=== PATIENT | female | born 1990 | race Caucasian/White ===

== ENCOUNTER 2021-11-04 17:53 | Emergency (ER) | payer OTHER, SELFPAY ==
[2021-11-04 18:02] VITALS: BP 104/54; PULSE 68; RESP 18; TEMP 35.7; O2SAT 98; BMI 22.3
--- NOTE | 2021-11-04 18:23 | ED_ITS ---
HPI - General Adult General Time Seen by Provider: 18:23 Date Seen: 11/04/21 Chief complaint: Chest Pain Stated complaint: Covid+ Chest Pain Time Seen by Provider: 11/04/21 17:56 Source: patient and RN notes reviewed Mode of arrival: EMS Limitations: no limitations History of Present Illness HPI narrative: Patient is a 31-year-old female with complex medical history coming in with complaint of right upper quadrant pain radiating into the chest with underlying COVID. She states she tested positive for COVID. She states she started to become ill on Tuesday but she also said that she stopped her Xarelto through the weekend so that she could be able to take ibuprofen as she felt ibuprofen worked better for her symptoms. She states she has been diagnosed with a portal vein thrombosis in 2016, had a bypass surgery done for this at [place]. She has been on Xarelto for this. 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 She has been having significant body aches. Did have 2 days of fevers of 101.8, did not get it below 100. She has had maybe minimal cough. She started having right upper quadrant abdominal pain reminiscent of symptoms that were similar with her portal vein thrombosis. Pain does radiate into her chest. No shortness of breath. Sore throat started today. She does have IV contrast allergy and states that she does get steroids and Benadryl when she needs contrast done. She really has not been able to eat or drink, minimal oral intake per report. Did get 50 mg IV Benadryl, 75 mcg IV fentanyl and 4 mg IV Zofran with EMS. She states she did not test positive for COVID until today. She states she has been in contact with her physician at [facility] [place] wound did send her in a medicine for COVID. She knows it was not the Paxlovid due to her Xarelto. She believes it may have been molpurinavir which she has not started. She reported to nursing staff that she had been using CBD gummies to aid in sleep. Related Data Home Medications Medication Instructions Recorded Confirmed bupropion HCl 150 mg 24 hr tablet, mg PO 11/04/21 extended release dextroamphetamine-amphetamine ER PO 11/04/21 30 mg 24hr capsule,extend release duloxetine 30 mg capsule,delayed mg PO 11/04/21 release fluticasone propionate 50 intranasal 11/04/21 mcg/actuation nasal spray,suspension rivaroxaban 20 mg tablet (Xarelto) mg 11/04/21 Allergies Allergy/AdvReac Type Severity Reaction Status Date / Time Iodinated Contrast Media Allergy Verified 11/04/21 20:12 zolpidem [From Ambien] Allergy Verified 11/04/21 20:12 propanolol Allergy Uncoded 11/04/21 20:12 Review of Systems Status of ROS: Reports: 10 or more systems reviewed and unremarkable except as noted in History and below [facility] Medical History (Updated 11/04/21 @ 21:21 by Christianne Lara MD) Abdominal hernia Abdominal pain ADHD Aneurysm Anxiety Asthma Campylobacter enteritis Colitis DVT (deep venous thrombosis) Mariaelena-Danlos disease Gastritis long-term current use of anticoagulant Low back pain Migraine Pain management contract agreement Pancreatitis Portal hypertension PVT (portal vein thrombosis) Thyroid nodule Surgical History (Updated 11/04/21 @ 19:34 by Roberto Swain RN) Delivery by section H/O wisdom tooth extraction History of knee surgery Hx of tonsillectomy Social History Smoking Status: Unknown if ever smoked Do you use any of these nicotine containing products: None How often do you have a drink containing alcohol: never AUDIT-C Alcohol total score: 0 Non-prescribed substance use: marijuana (any form) Exam Const: Vital Signs, click to edit/add: Vital Signs - 24 hr 11/04/21 18:02 11/04/21 19:13 11/04/21 19:30 Temperature 96.3 F L Pulse Rate [Right Pulse Oximeter] 68 74 Respiratory Rate 18 16 Blood Pressure [Ri ght Upper Arm] 104/54 L 122/73 Pulse Oximetry 98 98 99 Oxygen Delivery Me thod Room Air Room Air Documenting provider has reviewed patient's vital signs: yes Common normals: no apparent distress, average body habitus, oriented x3, no limitations and alert General appearance: cooperative (Sleepy likely from medications from EMS but certainly arousable), comfortable and ill appearing Other: Is able to fully converse with me despite having IV fentanyl on board. Does keep her eyes shut when talking to me however but speech is distinct and appropriate. HENMT: Common normals: normocephalic, head/scalp atraumatic, hearing grossly normal bilaterally, external ears normal, external nose normal, nasal mucous membranes and turbinates normal, oropharynx normal, dentition normal and gingiva normal Head and scalp: normocephalic and atraumatic Nose: external nose normal and nasal mucous membranes and turbinates normal External ear: external ears normal Other: Oral mucosa and tongue with dry membranes but posterior pharynx normal. Eye: Common normals: PERRL, EOMs intact bilaterally, conjunctivae normal and no scleral icterus Conjunctiva: conjunctiva(e) normal Pupil: PERRL Neck & C-Spine: Common normals: full ROM, no lymphadenopathy, supple, no meningeal signs, no JVD and thyroid normal Thyroid: thyroid normal Resp: Common normals: normal respiratory effort, no retractions, no use of accessory muscles and clear to auscultation bilaterally Auscultation: clear to auscultation bilaterally Cardio: Common normals: no JVD, regular rate, regular rhythm, S1 normal heart sound, S2 normal heart sound, no gallops, no clicks, no murmurs and no rub Rate: regular rate Rhythm: regular rhythm Heart sounds: S1 normal and S2 normal GI: Common normals: Normal to inspection, nondistended, normoactive bowel sounds present (Old well-healed midline scar), soft to palpation, non-tender, no hepatosplenomegaly, no masses and no bruits Palpation: soft and no hepatosplenomegaly Extremity: Common normals: normal to inspection, full ROM, normal capillary refill, no joint enlargement, no clubbing, cyanosis or edema, no calf tenderness and no pedal edema Neuro: Common normals: oriented x3 Sensorium/orientation: alert Meningeal signs: no meningeal signs Skin: Common normals: no rashes or lesions noted, no wounds, no jaundice and no petechiae General skin exam: no rashes or lesions noted Course Course Hospital Course: Will initiate a L of IV fluids as she certainly does seem dry clinically. Will premedicate with 200 mg IV hydrocortisone and patient already received IV Benadryl, consider re-dosing with 25 mg if it is going to be a while before the CT. We will obtain an EKG, have her on cardiac monitoring and pulse oximetry. Given her report of COVID in her history of thromboembolic disease and current status being off Xarelto, will get chest PE protocol and obtain abdomen pelvis with IV contrast. May need to contact [place] for further assistance on her history with records. At this time she is hemodynamically stable. Falls asleep when I am not interacting with her, thus presumably her pain is well controlled. Vital Signs Vital signs: Initial Vital Signs Temperature 96.3 F L 11/04/21 18:02 Temperature Source Temporal Artery Scan 11/04/21 18:02 Pulse Rate 68 11/04/21 18:02 Pulse Rhythm 11/04/21 18:02 Respiratory Rate 18 11/04/21 18:02 Blood Pressure 104/54 L 11/04/21 18:02 Blood Pressure Mean 70 11/04/21 18:02 Blood Pressure Position Supine 11/04/21 18:02 Pulse Oximetry 98 11/04/21 18:02 Oxygen Delivery Method 11/04/21 18:02 Vital Signs Temperature 96.3 F L 11/04/21 18:02 Pulse Rate 68 11/04/21 18:02 Respiratory Rate 18 11/04/21 18:02 Blood Pressure 104/54 L 11/04/21 18:02 Pulse Oximetry 98 11/04/21 18:02 Oxygen Delivery Method 11/04/21 18:02 Temperature 96.3 F L 11/04/21 18:02 Pulse Rate 74 11/04/21 19:30 Respiratory Rate 16 11/04/21 19:30 Blood Pressure 122/73 11/04/21 19:30 Pulse Oximetry 99 11/04/21 19:30 Oxygen Delivery Method 11/04/21 19:30 Medical Decision Making Lab Data Lab results reviewed: Yes I reviewed the patient's lab results Labs: Lab Results 11/04/21 11/04/21 11/04/21 Range/Units 19:13 19:13 19:13 WBC 9.27 (4.50-11.00) K/uL RBC 4.30 (4.00-5.20) m/uL Hgb 13.4 (12.0-16.0) gm/dL Hct 39.6 (33.0-51.0) % MCV 92 (80-100) fL MCH 31 (26-34) pg MCHC 34 (32-36) gm/dL RDW Coeff of Sandy 12.1 (11.5-15.5) % Plt Count 190 (140-440) K/uL Neut % (Auto) 77.5 H (42.0-72.0) % Lymph % (Auto) 15.7 L (20-44) % Vance % (Auto) 5.9 (0.0-11.0) % Eos % (Auto) 0.5 (0.0-7.0) % Baso % (Auto) 0.3 (0.0-3.0) % Neut # (Auto) 7.20 H (1.7-7.0) K/uL Lymph # (Auto) 1.50 (0.90-2.90) K/uL Vance # (Auto) 0.50 (0.00-0.90) K/UL Eos # (Auto) 0.05 (0.00-0.50) K/uL Baso # (Auto) 0.03 (0.00-0.30) K/uL Abs Immat Gran (auto) 0.01 (0.00-0.30) K/uL D-Dimer Quant (PE/DVT) < 0.27 (0.00-0.50) ug/ml Sodium 137 (135-149) mmol/L Potassium 3.6 (3.6-5.1) mmol/L Chloride 103 (96-114) mmol/L Carbon Dioxide 28 (20-32) mmol/L BUN 15 (5-24) mg/dL Creatinine 0.5 (0.5-1.5) mg/dL Estimated Creat Clear 152.62 Estimated GFR 129 ml/min Glucose 97 (60-115) mg/dL Lactate (0.5-1.9) mmol/L Calcium 8.9 (8.4-10.6) mg/dL Total Bilirubin 0.1 (0.1-1.5) mg/dL AST 26 (12-35) U/L ALT 16 (4-35) U/L Alkaline Phosphatase 51 (40-150) U/L C-Reactive Protein < 0.5 L (0.5-1.0) mg/dL NT-Pro-B Natriuret Pep (0-125) PG/mL Total Protein 6.8 (6.0-8.3) g/dL Albumin 4.3 (3.3-5.0) g/dL POC Troponin I (0.01-0.04) ng/ml 09/21/22 09/21/22 09/21/22 Range/Units 19:13 19:13 19:13 WBC (4.50-11.00) K/uL RBC (4.00-5.20) m/uL Hgb (12.0-16.0) gm/dL Hct (33.0-51.0) % MCV (80-100) fL MCH (26-34) pg MCHC (32-36) gm/dL RDW Coeff of Sandy (11.5-15.5) % Plt Count (140-440) K/uL Neut % (Auto) (42.0-72.0) % Lymph % (Auto) (20-44) % Vance % (Auto) (0.0-11.0) % Eos % (Auto) (0.0-7.0) % Baso % (Auto) (0.0-3.0) % Neut # (Auto) (1.7-7.0) K/uL Lymph # (Auto) (0.90-2.90) K/uL Vance # (Auto) (0.00-0.90) K/UL Eos # (Auto) (0.00-0.50) K/uL Baso # (Auto) (0.00-0.30) K/uL Abs Immat Gran (auto) (0.00-0.30) K/uL D-Dimer Quant (PE/DVT) (0.00-0.50) ug/ml Sodium (135-149) mmol/L Potassium (3.6-5.1) mmol/L Chloride (96-114) mmol/L Carbon Dioxide (20-32) mmol/L BUN (5-24) mg/dL Creatinine (0.5-1.5) mg/dL Estimated Creat Clear Estimated GFR ml/min Glucose (60-115) mg/dL Lactate 1.3 (0.5-1.9) mmol/L Calcium (8.4-10.6) mg/dL Total Bilirubin (0.1-1.5) mg/dL AST (12-35) U/L ALT (4-35) U/L Alkaline Phosphatase (40-150) U/L C-Reactive Protein (0.5-1.0) mg/dL NT-Pro-B Natriuret Pep 17 (0-125) PG/mL Total Protein (6.0-8.3) g/dL Albumin (3.3-5.0) g/dL POC Troponin I 0.00 L (0.01-0.04) ng/ml Imaging Data CT scan - abdomen: Attestation: I have reviewed the pertinent imaging results. Radiologist's impression: Patient: SUKI RODRÍGUEZ Facility:?[facility] Patient ID:?[id number] Site Patient ID:?[id number]. Site :?1990 Study:?CT Chest/Abd/Pelvis W/ 95CC ISOVUE-370 PE PROTOCOL-11/04/2021 8:28:12 PM Ordering Physician:?Jane Faust Final Report: INDICATION: Chest pain, COVID. Right upper quadrant abdominal pain, history of portal vein thrombosis. TECHNIQUE: CT chest, abdomen, and pelvis acquired with 95 mL Isovue 370 contrast. COMPARISON: CT chest/abdomen/pelvis dated 12/27/2017. FINDINGS: CHEST: Lungs and pleura: Bilateral dependent atelectasis. No focal consolidation. Heart and vessels: No cardiomegaly, no pericardial effusion. Suboptimal evaluation secondary to significant contrast opacification of the pulmonary veins, and motion artifact. No definite filling defects identified within the main, lobar, and contrast opacified portions of the segmental pulmonary arteries. Thyroid and lower neck: Subcentimeter calcified right thyroid nodule, stable. Mediastinum/analilia: No lymphadenopathy. Residual thymic tissue is present in the anterior mediastinum. Chest wall: No axillary lymphadenopathy. ABDOMEN/PELVIS: Liver: Too small to characterize hypodense hepatic lesions, likely benign in the absence of a known malignancy. Stable punctate calcifications along the falciform ligament. Gallbladder and bile ducts: Unremarkable. Pancreas: Unremarkable. Spleen: Unremarkable. Adrenal glands: Unremarkable. Kidneys: Kidneys enhance symmetrically, without hydronephrosis. Slight interval increase in size of a 1.5 cm left renal cyst. Retroperitoneum: No lymphadenopathy. Bowel and mesentery: Bowel is not obstructed. Mild colonic wall thickening of the ascending colon. Normal appendix. No significant ascites. No pneumoperitoneum. Bladder: Unremarkable for degree of distension. Reproductive organs: Unremarkable. Pelvic lymph nodes: No lymphadenopathy. Vessels: Sequelae of cavernous transformation of the portal vein, similar to prior study. Abdominal wall: No acute abdominal wall abnormality. Bones: No suspicious/aggressive focal osseous lesion. IMPRESSION: 1. Within limitations of motion artifact, no evidence of acute pulmonary embolus identified. 2. Mild colonic wall thickening of the ascending colon, may reflect mild colitis. 3. Sequelae of cavernous transformation of the portal vein, similar to prior study. Please note that all CT scans at this facility use dose modulation, iterative reconstruction, and/or weight-based dosing when appropriate to reduce radiation dose to as low as reasonably achievable. Dictated by Iván Ruiz MD @ 11/04/2021 9:11:14 PM (Electronic Signature) CT scan - chest: Attestation: I have reviewed the pertinent imaging results. Radiologist's impression: See above report. ECG Data Attestation: I personally reviewed and interpreted this ECG as follows: (Sinus bradycardia, 57 beats per minute. Incomplete right bundle branch block. QT corrected 439 milliseconds. No evidence of any ischemic disease.) Prior ECG tracings: not available for review Critical Care Time Critical Care Time Critical Care Time: No Discharge Plan Discharge Clinical Impression: Right upper quadrant abdominal pain, COVID-19, Chest pain Patient Disposition: Home, Self-Care Condition: Stable Instructions: Chest Pain (ED), Abdominal Pain (ED), COVID-19 (Coronavirus Disease 2019) (ED) Additional Instructions: Recommend that you try to drink more fluids, take small frequent sips of fluids while you are awake. You need to get back on your Xarelto and take as prescribed. Start the COVID treatment that was prescribed by your primary care provider. Review handouts, if you feel you are worsening, developing any complications from COVID or have further concerns, please seek re-evaluation. Prescriptions: No Action dextroamphetamine-amphetamine 30 mg capsule,extended release 24hr PO Label Comments: TAKE 1 CAPSULE BY MOUTH ONCE DAILY. fluticasone propionate 50 mcg/actuation spray,suspension INTRANASAL Label Comments: INHALE 2 SPRAYS TO BOTH NOSTRILS ONCE DAILY bupropion HCl 150 mg tablet extended release 24 hr PO Label Comments: TAKE 1 TABLET BY MOUTH EVERY MORNING duloxetine 30 mg capsule,delayed release(DR/EC) PO Label Comments: TAKE 1 CAPSULE BY MOUTH ONCE DAILY. Xarelto 20 mg tablet Label Comments: TAKE 1 TABLET (20 MG) BY MOUTH ONCE DAILY WITH EVENING MEAL. Stand Alone Forms: [employer] Info Instructions
--- NOTE | 2021-11-04 18:31 | CRLHL7_ITS ---
For Patients: As a result of the 21st Century Cures Act, medical imaging exams and procedure reports are released immediately into your electronic medical record. You may view this report before your referring provider. If you have questions, please contact your health care provider. INDICATION: Chest pain, COVID. Right upper quadrant abdominal pain, history of portal vein thrombosis. TECHNIQUE: CT chest, abdomen, and pelvis acquired with 95 mL Isovue 370 contrast. COMPARISON: CT chest/abdomen/pelvis dated 12/27/2017. FINDINGS: CHEST: Lungs and pleura: Bilateral dependent atelectasis. No focal consolidation. Heart and vessels: No cardiomegaly, no pericardial effusion. Suboptimal evaluation secondary to significant contrast opacification of the pulmonary veins, and motion artifact. No definite filling defects identified within the main, lobar, and contrast opacified portions of the segmental pulmonary arteries. Thyroid and lower neck: Subcentimeter calcified right thyroid nodule, stable. Mediastinum/analilia: No lymphadenopathy. Residual thymic tissue is present in the anterior mediastinum. Chest wall: No axillary lymphadenopathy. ABDOMEN/PELVIS: Liver: Too small to characterize hypodense hepatic lesions, likely benign in the absence of a known malignancy. Stable punctate calcifications along the falciform ligament. Gallbladder and bile ducts: Unremarkable. Pancreas: Unremarkable. Spleen: Unremarkable. Adrenal glands: Unremarkable. Kidneys: Kidneys enhance symmetrically, without hydronephrosis. Slight interval increase in size of a 1.5 cm left renal cyst. Retroperitoneum: No lymphadenopathy. Bowel and mesentery: Bowel is not obstructed. Mild colonic wall thickening of the ascending colon. Normal appendix. No significant ascites. No pneumoperitoneum. Bladder: Unremarkable for degree of distension. Reproductive organs: Unremarkable. Pelvic lymph nodes: No lymphadenopathy. Vessels: Sequelae of cavernous transformation of the portal vein, similar to prior study. Abdominal wall: No acute abdominal wall abnormality. Bones: No suspicious/aggressive focal osseous lesion. IMPRESSION: 1. Within limitations of motion artifact, no evidence of acute pulmonary embolus identified. 2. Mild colonic wall thickening of the ascending colon, may reflect mild colitis. 3. Sequelae of cavernous transformation of the portal vein, similar to prior study. Please note that all CT scans at this facility use dose modulation, iterative reconstruction, and/or weight-based dosing when appropriate to reduce radiation dose to as low as reasonably achievable. Dictated by Iván Ruiz MD @ 11/04/2021 9:11:14 PM (Electronically Signed)
[2021-11-04] MEDS: diphenhydrAMINE 50 MG/ML inj IVP (19:10)
[2021-11-04] MEDS: HYDROCORTISONE SOD SUCCINATE 50 MG/ML inj 200 MG IVP (19:10)
[2021-11-04] MEDS: 0.9 % SODIUM CHLORIDE 1000 ml 1,000 ML 500 ML IV (19:10)
[2021-11-04 19:13] VITALS: O2SAT 98
[2021-11-04 19:25] LABS: Lactate* 1.3 mmol/L (0.5-1.9)
[2021-11-04 19:30] VITALS: BP 122/73; PULSE 74; RESP 16; O2SAT 99
[2021-11-04 19:51] LABS: Basophils Absolute Auto 0.03 K/uL (0.00-0.30); Basophils Percent Auto 0.3 % (0.0-3.0); Eosinophils Absolute Auto 0.05 K/uL (0.00-0.50); Eosinophils Percent Auto 0.5 % (0.0-7.0); Hematocrit 39.6 % (33.0-51.0); Hemoglobin* 13.4 gm/dL (12.0-16.0); Immature Granulocytes Abs Auto 0.01 K/uL (0.00-0.30); Lymphocytes Percent Auto 15.7 % (20-44); Mean Corpuscular HGB Conc 34 gm/dL (32-36); Mean Corpuscular Hemoglobin 31 pg (26-34); Mean Corpuscular Volume 92 fL (80-100); Monocytes Percent Auto 5.9 % (0.0-11.0); Neutrophils Percent Auto 77.5 % (42.0-72.0); Platelet Count* 190 K/uL (140-440); RDW Coefficient of Variation % 12.1 % (11.5-15.5); White Blood Count* 9.27 K/uL (4.50-11.00)
[2021-11-04 20:00] VITALS: BP 117/64; PULSE 67; RESP 16; O2SAT 97
[2021-11-04 20:00] LABS: Slide Review Reflex No
[2021-11-04 20:03] LABS: Albumin* 4.3 g/dL (3.3-5.0); Chloride* 103 mmol/L (96-114)
[2021-11-04 20:04] LABS: Potassium* 3.6 mmol/L (3.6-5.1); Sodium* 137 mmol/L (135-149)
[2021-11-04 20:07] LABS: Alkaline Phosphatase* 51 U/L (40-150); Aspartate Amino Transferase* 26 U/L (12-35); Bilirubin Total* 0.1 mg/dL (0.1-1.5); Blood Urea Nitrogen* 15 mg/dL (5-24); Carbon Dioxide* 28 mmol/L (20-32); Creatinine* 0.5 mg/dL (0.5-1.5); Est. Creatinine Clearance* 152.62; Estimated Glomerular Filt Rate 129 ml/min; Glucose* 97 mg/dL (60-115); Total Protein* 6.8 g/dL (6.0-8.3)
[2021-11-04 20:08] LABS: Calcium* 8.9 mg/dL (8.4-10.6)
[2021-11-04 20:11] LABS: C Reactive Protein* < 0.5 mg/dL (0.5-1.0)
--- OUTSIDE RECORDS SUMMARY | 2021-11-04 20:13 | XMS_ITS ---
:1990 Author Care Team Providers Name Role Phone Alysha Garcia Primary Care Provider Unavailable Allergies Code Code System Name Reaction Severity Status Onset NKDA ? Medications Name Status Start Date Stop Date ? ? albuterol sulfate HFA 90 mcg/actuation aerosol inhaler Active ? Not available amoxicillin 500 mg capsule Completed ? 09/23 TAKE 1 CAPSULE BY MOUTH THREE TIMES DAILY UNTIL GONE amoxicillin 875 mg-potassium clavulanate 125 mg tablet Completed ? 10/12/2020 azithromycin 250 mg tablet Completed ? 09/23 TAKE 2 TABLETS BY MOUTH TODAY, THEN TAKE 1 TABLET DAILY FOR 4 D AYS benzonatate 100 mg capsule Completed ? 09/23 TAKE 1 CAPSULE BY MOUTH THREE TIMES A DAY NEEDED FOR COUGH cefuroxime axetil 500 mg tablet Completed ? 09/23/2020 TAKE 1 TABLET BY MOUTH TWICE A DAY FOR 10 DAYS Chantix 1 mg tablet Active ? Not availabl e TAKE 1 MG BY MOUTH 2 TIMES DAILY WITH MEALS. Chantix Starting Month Box 0.5 mg (11)-1 mg (42) tablets in dose pack Active ? Not available PLEASE SEE ATTACHED FOR DETAILED DIRECTIONS chlorhexidine gluconate 0.12 % mouthwash Completed ? 09/23/2020 SWISH AND SPIT 1 2 OUNCE BY MOUTH TWICE A DAY FOR 7 DAYS dextroamphetamine-amphetamine ER 15 mg 24hr capsule,extend relea se Active ? Not available TAKE 1 CAPSULE BY MOUTH EVERY DAY dextroamphetamine-amphetamine ER 20 mg 24hr Active ? Not available capsule,extend release dextroamphetamine-amphetamine ER 30 mg 24hr Active ? Not available capsule,extend release hydrocodone 5 mg-acetaminophen 325 mg tablet Completed ? 10/12/2020 TAKE 1 TABLET BY MOUTH EVERY 6 HOURS NEEDED FOR PAIN hydroxyzine HCl 25 mg tablet Active ? Not available TAKE 1 TABLET EVERY 6 HOURS NEEDED FOR PAIN/ANXIETY/ITCHING. methylprednisolone 4 mg tablets in a dose pack Completed ? 09/23/2020 TAKE BY MOUTH DIRECTED ON INSIDE OF PACKAGE FOR 6 DAYS ondansetron HCl 4 mg tablet Active ? Not available TAKE 1 TABLET BY MOUTH EVERY 8 HOURS IF NEEDED FOR NAUSEA/VOMIT ING. oxycodone 5 mg tablet Completed ? 10/12/2020 prednisone 20 mg tablet Active ? Not avai lable Xarelto 20 mg tablet Active ? Not availab le Problems Name Status Onset Date Source ? Anxiety Active 09/23/2020 ? Attention Deficit Hyperactivity Disorder Active 021 ? Procedures None recorded. Results Lab Results None recorded. Past Encounters 10/10/2020 Otalgia [facility]ACA [facility]: [address], [place] [address], Ph. 09/23/2020 Acute Otitis Media KARLENE Nguyen: [address], [address], [place] [address], Ph. Social History None recorded. Vaccine List None recorded. Plan of Care Patient Instructions Patient presents for evaluation of otal fredrick on the right side and consistent with otitis media. Broad differential conside red and no indication for immediate workup at this time for serious worrisome etiology . No respiratory concerns today. Patient may take Tylenol or Ibuprofen or as needed f or pain. Patient started on antibiotics. Discussed return precautions and signs/s ymptoms to present to the ER. Patient in agreement and understanding. All questio ns answered. Reminders Provider Appointments None recorded. ? ? Lab None recorded. ? ? Referral None recorded. ? ? Procedures None recorded. ? ? Surgeries None recorded. ? ? Imaging None recorded. ? ? Vitals 10/10/2020 12:00PM URGENT CARE Blood Pressure 120/77 mm[Hg] 09/23/2020 11:00AM URGENT CARE Blood Pressure 118/64 mm[Hg]
--- OUTSIDE RECORDS SUMMARY | 2021-11-04 20:13 | XMS_ITS ---
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, unspecified Problem Muscle wasting M62.59 Active 13337 000 and atrophy, not elsewhere classified, multiple sites ALLERGIES Substance Reaction Event Type Date Status contrast dye rash Non Drug Allergy Sep, Active ENCOUNTERS Encounter Location Date Diagnosis [facility] [address] Sep, [place] [address] [facility] [address] Sep, Neck pain M54.2 ; [facility] [place], [place] Shoulder beverly n M25.519 ; [address] Low back pain M5 4.50 and Muscle wasti ng and atrophy, not els ewhere classified, mult iple sites M62.59 [facility] [address] 24 Sep, 2021 Neck pain M54.2 ; [facility] [place] Dorsalgia, u nspecified [address] M54.9 ; Low back pain M54.50 and Shoul sofi pain M25.519 [facility] [address] Sep, Pain in unspecified [facility] [place] joint M25.50 ; [address] Mariaelena-Danlos sy ndrome, unspecified Q79. 60 ; Shoulder pain M2 5.519 ; Neck pain M54.2 ; Dorsalgia, unspe cified M54.9 ; Low back pain M54.50 and Muscl e wasting and atro phy, not elsewhere classified, [facility] M62.59 [facility] [address] [facility] Sep, [facility] [address] [place] [address] IMMUNIZATIONS No Known Immunizations SOCIAL HISTORY Never Assessed REASON FOR REFERRAL Reason REHAB PT and OT: MED[facility] CERVIC AL-LUMBAR Referral Organization [facility] Referring Provider First Name Laron Referring Provider Last Name Tramaine Referring Provider Specialty Occupational Medicine Referring Provider Referring Provider email [email or web address] Referred Organization [facility] Referred Provider Alfredo Cintron rosana Referred Address [address] [place] [place],[address] Referred Provider Specialty Rehabilitation FUNCTIONAL STATUS PLAN OF CARE Activity Details Future Appointment Provider Name:Sherrell reynolds, 2021-11-10 12:30:00 AM, [address] [place], [address], Future Appointment Provider Name:Heena ayala, 2021-11-13 12:30:00 AM, [address] [place], [address], Referral REHAB PT and OT: MED CERV[facility] AL-LUMBAR, [facility], [facility] [place], [address], [email or web address], VITAL SIGNS Height 66 in 2021-09-25 Blood pressure systolic 112 mm Hg 2021-09-25 Blood pressure diastolic 68 mm Hg 2021-09-25 MEDICATIONS Medication Instructions Dosage Frequency Start End Date Duration Stat us DULoxetine HCl Orally Once a 1 capsule 24h A ctive 30 MG day buPROPion HCl Orally Twice a 1 tablet 12h Ac tive 100 MG day Adderall 30 MG Orally Twice a 1 tablet 12h A ctive day Xarelto 20 MG Orally Once a 1 tablet 24h Act victor manuel day with food PROCEDURES Procedure Date Ordered Result Body Site Therapeutic activities OT Oct 09, 2021 Neuromuscular Reeducation PT Oct 07, 2021 Therapeutic Exercise PT Oct 07, 2021 OT EVAL LOW COMPLEX Oct 09, 2021 Therapeutic Exercise OT Oct 09, 2021 PT EVAL LOW COMPLEX Oct 07, 2021 RESULTS No Results REASON FOR VISIT Insurance Providers [facility]ly [facility] Health Member Patient Patient Patient Patient Patient Subscriber Subscriber Subscriber Group Insurance Plan Plan Plan Plan ID Relationship Address Phone Name Date of ID Name Date of No Type Insurance Insurance Insurance Coverage to Subscriber Address Phone Name Dates KermitO [phone] PreferredO Evelyn [id number] 221 [id number] [place] 24 [address] [place] [facility] tive ([facility]) Drive tive ([facility]) [facility] [id number] MEDICAL (GENERAL) HISTORY Type Description Date Medical History abdominal aneurysm Medical History acid reflux Medical History anemia Medical History anxiety Medical History asthma Medical History bleeding disorder Medical History blood clots Medical History depression Medical History diverticulitis Medical History frequent infections Medical History headaches Medical History hernia Medical History migraines Surgical History section 2009, 2016, 2018 Surgical History 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
--- OUTSIDE RECORDS SUMMARY | 2021-11-04 20:13 | XMS_ITS | Clinical Summary ---
:1990 Author Organization [facility] [place] [address] Care Team Providers Name Role Phone Ira Gillis MD Primary Care Provider [phone] Allergies Active Allergy Reactions Severity Noted Date Comments Zolpidem Tartrate GI Upset 07/21/2015 Buspirone Other - Describe In 05/28/2015 pouseverino g in her Comment Field head-muscle [place] Methylphenidate Palpitations 05/11/2017 And extreme fatigue Iodinated Contrast Media Hives 10/13/2013 Sumatriptan Paresthesias 09/14/2013 Tingling and numbness in fee t and headache Iodine Hives 10/13/2013 Propranolol *Unknown 11/05/2013 Low BP, HR Medications Medication Sig Dispensed Refills Start End Status Date Date COLACE 100 mg TAKE 1 CAPSULES 0 10/30/19 Active capsule PO BID FOR 20 CONSTIPATION acetaminophen Take 1-2 Tablets 100 Tablet 0 06/28/19 Active (TYLENOL) 325 mg (325-650 mg) by 21 tabletIndications: mouth every 4 Abnormal uterine hours if needed bleeding (AUB) (mild pain). Max acetaminophen dose: 4000mg in 24 hrs. dextroamphetamine-a Take 1 Capsule 30 Capsule 0 04/18/19 Active mphetamine (30 mg) by mouth 22 (Adderall XR) 30 mg once daily. Extended-Release capsuleIndications: Attention deficit hyperactivity disorder (ADHD), combined type rivaroxaban Take 1 Tablet (20 90 Tablet 3 05/05/19 Active (XARELTO) 20 mg mg) by mouth once 22 tabletIndications: daily with Portal vein evening meal. thrombosis dextroamphetamine-a Take 1 Capsule 30 Capsule 0 07/04/19 Active mphetamine (30 mg) by mouth 22 (Adderall XR) 30 mg once daily. Extended-Release capsuleIndications: Attention deficit disorder, unspecified hyperactivity presence buPROPion Take 1 Tablet 90 Tablet 3 05/05/19 Active (WELLBUTRIN XL) 150 (150 mg) by mouth 22 mg Extended-Release every morning. tabletIndications: Tobacco abuse fluticasone (50 mcg INHALE 2 SPRAYS 48 mL 2 06/26/19 Active per actuation) TO BOTH NOSTRILS 22 nasal solution ONCE DAILY (FLONASE)Indication s: Nasal congestion dextroamphetamine-a Take 1 Capsule 30 Capsule 0 10/20/19 Active mphetamine (30 mg) by mouth 22 (Adderall XR) 30 mg once daily. Extended-Release capsuleIndications: Attention and concentration deficit cyclobenzaprine Take 1 Tablet (10 28 Tablet 0 08/28/19 Active (FLEXERIL) 10 mg mg) by mouth 3 tabletIndications: times daily if Back strain, needed for Muscle initial encounter Spasm. DULoxetine Take 1 Capsule 90 Capsule 0 09/10/19 Act victor manuel (CYMBALTA) 30 mg (30 mg) by mouth 22 Delayed-release once daily. capsuleIndications: Chronic pain syndrome albuterol HFA Inhale 2 Puffs by 1 Each 3 11/05/19 Active (PRO-AIR; VENTOLIN; mouth every 06 05 PROVENTIL) 90 hours if needed mcg/actuation for Shortness Of inhalerIndications: Breath or Mild intermittent Wheezing. asthma without complication molnupiravir, EUA, Take 4 Capsules 40 Capsule 0 11/05/1910/16 6/ Active 200 mg (800 mg) by mouth 22 022 capsuleIndications: two times daily COVID-19 virus for 5 days. infection albuterol HFA Inhale 2 Puffs by 1 Each 0 06/05/19 Discontinued (PRO-AIR; VENTOLIN; mouth every (Reorder PROVENTIL) 90 hours if needed. (E-cancel not mcg/actuation sent)) inhalerIndications: Mild intermittent asthma without complication dextroamphetamine-a Take 1 Capsule 30 Capsule 0 09/20/19 09/0 5/2 mphetamine (30 mg) by mouth 22 022 (Adderall XR) 30 mg once daily. Extended-Release capsuleIndications: Attention and concentration deficit Active Problems Problem Noted Date Mild intermittent asthma without complication 03/28/19 22 Thyroid nodule 01/12/2018 Overview: Incidentally found on CT, ultrasound 2017 recommends repeat in 1,2,3 and 5 years. Next (and last ultrasound ) due 11/2022 Gastritis 03/18/2017 Gastritis 03/18/2017 Portal hypertension 04/17/2016 Sacroiliac joint pain 03/31/2016 Acute low back pain 03/05/2016 halfway current use of anticoagulant 12/12/2015 Pain medication agreement 08/29/2015 Attention deficit hyperactivity disorder (ADHD), combi omero type 06/11/2015 Attention and concentration deficit 11/08/2014 Campylobacter enteritis 09/13/2014 Colitis 09/11/2014 Atypical squamous cells cannot exclude high grade squa mous intraepithelial 03/25/2014 lesion on cytologic smear of cervix (ASC-H) Overview: 2010 LSIL 09/10/2011 NIL 12/22/2012 NIL 03/25/2014 ASC-H cannot exclude high gra de 08/12/2014 ASCUS/HPV+ 10/29/2014 [place]:benign (age 24) 07/04/2017 ASCUS/HPV negative 08/05/2017 [place] No biopsy due to blood t hinner 08/22/2017 [place] Suggestive of ROXANNA I (age 27) 03/08/2019 NIL/HPV negative (done outsid e of [facility]) 05/04/2021 NIL/HPV negative Plan: Pap/HPV due 04/2024 ASCCP 2019 Recommendations for High-grad e histology (ROXANNA 2, 3, CIS or AIS) or high-grade cytology (HSIL, AGC, ASC-H, LSIL-H, HPV 16/18+): Pap and HPV (cotesting) at 6 months, then annually x 3. If all n egative, continued surveillance at 3 yea r intervals is recommended for at least 25 years, even if beyond age 65. Abdominal pain 11/21/2013 Overview: Chronic abdominal pain since DVT. 11/16/2013 EGD normal small hiatal hernia 11/16/2013 colonoscopy normal 11/15/2013 MRI abdominal/pelvic portal ve in aneurysm, blood clot resolved. 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 08/23/2013 MRI abdomen done HE Continues to have blood clot, but resolv ing. Some dilation and stenosis of portal vei n. Rest of exam was normal. Target INR 2-3 per electrical estimator. MRI again in 3 months. 11/2013. Dr. Lesvia Allen Spoke to electrical estimator, who agreed to sto p warfarin given cliot resolved, FU one month for further testing at his office. GUERA SEE MD MEGAN .................... 10:57 AM Tobacco abuse 12/22/2012 Depression with anxiety 05/11/2011 Missed ab Overview: empty sac, took oral medication to com plete Resolved Problems Problem Noted Date Resolved Date ASCUS with positive high risk HPV 09/27/20142017 Clinical depression 12/12/2013 09/11/2014 Anticoagulation monitoring, INR range 2-3 11/20/2013 12/03/2013 Overview: Stop warfarin 11/26/2013 GUERA SEE MD MEGAN .................... 8:00 AM Anticoagulation monitoring, INR range 2.5-3.5 11/20/2013 11/20/2013 PVT (portal vein thrombosis) 11/14/2013 09/11/2014 Hx of deep venous thrombosis 11/14/2013 09/11/2014 Abdominal pain 11/14/2013 09/11/2014 Anxiety 11/07/2013 09/11/2014 Major depressive disorder, single episode, severe, without 0 08/07/2013 09/11/2014 mention of psychotic behavior Abdominal pain 06/08/2013 09/11/2014 Overview: 2nd to DVT Insertion of implantable subdermal contraceptive 04/13/2013 05/28/2013 Overview: Nexplanon blessing insertion: ROBERT Rangel-ZOEY 04/13/2013; 05/28/2013: removed, DVT: portal vein 05/16 014; Abnormal pap 07/19/2017 Overview: lgsil, normal 2011 Encounters Date Type Specialty Care Team Description 11/04/2021 Phone Office Visit Ira Gillis Covid- 19 Positive Result MD Valerie (Symptoms began 11/02/21 Tested Negative on Tuesday then too k another test today and it came back positive.) 09/09/2021 Office Visit Ira Gillis Pain (Feels like she is MD Valerie always in pain and would like to discuss options); Medic ation Management (Pat ient states she will not use the Zanaflex ma de her feel horrible) 09/09/2021 Travel 09/04/2021 Office Visit Sania Karimi Back Pain (evasn oing back KARLENE Vega issues ) 09/04/2021 Travel 08/27/2021 Office Visit Humza Carrasco DO Back Pain/p roblem (Was doing some yard work last evening an d noted discomfort afte r lifting) 08/27/2021 Travel from Last 3 Months Immunizations Name Administration Dates Next Due Anthrax Vaccine 03/04/2009 HIB PRP-T (ActHIB,Hiberix) 03/25/2015 Hepatitis A, Unspecified 09/09/2008 Hepatitis B, Unspecified 03/04/2009, 09/09/2008, 06/29/2008 Human Papilloma Virus Vaccine 05/15/2012, 12/16/2011, 2011 Inactivated Polio Vaccine 09/09/2008 Influenza A (H1N1), Inactivated 03/04/2009 Influenza Virus, Unspecified 11/18/2014, 11/09/2013, 013, 12/22/2012, 01/04/2012, 01/18/2011, 10/29/2008, 06/29/2008 Influenza, IIV3 (Age >=3 years) 12/22/2012 Influenza, IIV4 12/07/2018, 01/21/2017, 12/17/2015 Influenza, Whole Virus 01/04/2012, 01/18/2011 MMR 02/01/2019, 09/09/2008 MMR, Unspecified 07/05/2016 Meningococcal Vaccine (Menactra) 03/25/2015, 09/09/2008 Meningococcal, Unspecified 03/25/2015, 03/25/2015 Pneumococcal Poly,23-Valent 12/13/2013 (Pneumovax) Pneumococcal conj 13-Valent (Prevnar 03/25/2015 13) Td (Age >=7 Years) 06/29/2008 Tdap 11/23/2018, 05/14/2016, 07/29/2011 Tuberculin (PPD) 10/30/2012 Typhoid (oral) 03/04/2009 Varicella Vaccine 09/09/2008 Family History Medical History Relation Name Comments Alcoholism Father Good Health Father Hypertension Father Alcoholism Maternal Grandfather Cancer Maternal Grandmother uterine and cervical, along with breast Cancer-breast Maternal Grandmother unsure of a ge at diagnosis Alcoholism Mother Good Health Mother Cancer-breast Other paternal great g randmother Alcoholism Paternal Grandfather Alcoholism Paternal Grandmother Relation Name Status Comments Father Maternal Grandfather Maternal Grandmother Mother Other Paternal Grandfather Paternal Grandmother Social History Tobacco Use Types Packs/Day Years Used Date Current Every Day Smoker Cigarettes 0.5 8 Sta rted: 08/05/2004 Smokeless Tobacco: Never Used Tobacco Cessation: Ready to Quit: Yes; C ounseling Given: Yes Alcohol Use Standard Drinks/Week Comments Not Currently 0 (1 standard drink = 0.6 oz pure alcoho l) ocassional Alcohol Habits Answer Date Recorded How often do you have a drink containing alcohol? Not asked How many drinks containing alcohol do you have on a typical Not asked day when you are drinking? How often do you have six or more drinks on one occasion? No t asked Comment: ocassional 03/11/2017 Sex Assigned at Date Recorded Not on file Obstetrics History Para Term AB IAB SAB Ectopic Multiple Living Live Births 4 3 3 0 1 0 0 1 0 3 3 Date Outcome GA Total Labor/2nd/3rd Weight Sex Delivery Anes PTL Tatiana A 1 A5 Name Clin Labor 12/30 Term 40w F Karolinaval Boucher 0d ng Delivery Location: [place], [place] Comments: thin lower uterine segme nt and failure to dilate 09/2012 Ectopic 8w0d Comments: methotrexate given 2016 Term Living 2018 Term Living Comments CS with tubal Last Filed Vital Signs Vital Sign Reading Time Taken Comments Blood Pressure 101/67 09/09/2021 9:32 AM CDT Pulse 74 09/09/2021 9:32 AM CDT Temperature 36.6 ??C (97.9 ??F) 07/23/2021 8:49 AM CDT Respiratory Rate 20 12/12/2020 6:38 AM CDT Oxygen Saturation 98% 09/09/2021 9:32 AM CDT Inhaled Oxygen Concentration - - Weight 62.6 kg (138 lb) 09/09/2021 9:32 AM CDT Height 170.1 cm (5' 6.97) 07/23/2021 8:49 AM CDT Body Mass Index 21.63 07/23/2021 8:49 AM CDT Plan of Treatment Health Maintenance Due Date Last Done Comments COVID-19 vaccine series (#1) 1990 Influenza for age 9-49 10/15/2021 12/07/2018, 01/21/2017, 12/17/2015, Additional history exists Depression screening for age 12+ 05/04/2022 05/04/2021, , 04/02/2019, Additional history exists BMI (ht and wt on same day) for 07/23/2022 07/23/2021, 04/15, age 18+ 06/02/2020, Additional history exists Pap test for age 21-65 05/04/2024 05/04/2021, 05/04/2021, 03/08/2019 (Completed outside of [facility]), Additional history exists Tetanus booster 11/23/2028 11/23/2018, 05/14/2016, 07/29/2011, Additional history exists Pneumococcal series for age 19-64 2055 03/25/2015, (3 - PPSV23 or PCV20) Tdap Completed 11/23/2018, 05/14/2016, 07/29/2011 Hepatitis C screening for age Completed 04/21/2020 18-79 Results Not on filefrom Last 3 Months Additional Health Concerns Infection Onset Date Last Indicated COVID-19 11/04/2021 11/04/2021 Insurance Payer Benefit Plan / Subscriber ID Effective Phone Address T ype Group Dates WC WORKERS COMP WC STATE AUTO [id number] 05/14/2013-Pres [place] [id number] [place] [address] WC WORKERS COMP WC STATE AUTO [id number] 05/14/2013-Pres [place] [id number] [place] [address] WC WORKERS COMP WC LIBERTY [id number] 11/15/2019-Pres [phone] [address] MUTUAL ent [address] [place] [address] WC WORKERS COMP WC LIBERTY [id number] 11/15/2019-Pres [phone] [address] [place] ent [address] [place], [place] [id number] COMMERCIAL COMMERCIAL Effective for [address] dates [address] [place] [address] BLUE CROSS BLUE CROSS OF [id number] 02/14/2013-[place] [address] [place] [place] [address] [place] [address] WC WORKERS COMP WC WORKERS COMP Effective for [address] all dates [address] [place] [address] [facility] Effective for [address] [place] [address] BLUE CROSS BLUE CROSS OF [id number] 02/14/2015-Prese [address] [phone] [place] [address] PREFERRED ONE PREFERRED ONE [id number] 06/14/2018-Prese [address] [place] [address] FedericofrancesEvelyn adkins Personal/Famil Self 1990 [phone] M y 7 (Home) [place] [address] FedericofrancesEvelyn adkins Personal/Famil Self [address] M y 7 (Home) [place] [address] FedericoromeEvelyn velázquez Workers Comp Self 1990 [phone] M 7 (Home) [place] [address] FedericofrancesEvelyn adkins Workers Comp Self 1990 [phone] M 7 (Home) [place] [address] FedericofrancesEvelyn adkins Workers Comp Self 1990 [phone] M 7 (Home) [place] [address] Evelyn Dillon Workers Comp Self 1990 [phone] 7 (Home) [place]ANE[place] HOBSON 933 46 Evelyn Dillon Workers Comp Self 1990 [phone] 7 (Home) [place] [address] OPPORTUNITY Occ Other 02/15/2000 [phone] ATTN [facility] Health/Perla 6 (Work) PAYABLE [address] [place] [address] Evelyn Dillon Workers Comp Self 1990 [phone] 7 (Home) [place] [address] FedericofranceshamiltonkaydenEvelyn Workers Comp Self 1990 [phone] 7 (Home) JANE[place] HOBSON 552 45 [employer] Occ Employer 12/25/1910 [phone] ATTN [facility] Health/Perla [id number] RESOURCES (Home) [address] [place] [address] [phone] (Work) JOCEJANEEN [phone] [employer] Other 02/15/2000 [phone] ATTN: María Elena TAYLOR tistew 4 (Home) Bobby [phone] 4 (Work) [place] [address] Advance Directives Latest Code Status on File Code Status Date Activated Date Inactivated Comments Full Code 06/27/2020 7:38 AM 06/27/2020 2:00 PM Code Status Discussion: Not Discussed Full Code 05/12/2016 12:42 PM 05/12/2016 4:39 PM Full Code 04/26/2016 4:58 PM 04/26/2016 7:21 PM Full Code 03/04/2016 8:10 AM 03/04/2016 12:39 PM Full Code 09/11/2014 9:25 PM 09/14/2014 12:59 PM Care Teams Cost And Risk Analysis Manager Relationship Specialty Start Date End Date Ira Gillis MD PCP - General Family Practice 09/27/[address] [place] [address]
[2021-11-04 20:15] LABS: NT Pro B Type NatriureticPept* 17 PG/mL (0-125)
[2021-11-04 20:25] LABS: D Dimer Quantitative* < 0.27 ug/ml (0.00-0.50)
[2021-11-04 20:30] VITALS: BP 118/61; PULSE 66; RESP 16; O2SAT 97
[2021-11-04 20:47] LABS: Alanine Aminotransferase* 16 U/L (4-35)
[2021-11-04 21:37] VITALS: BP 124/66; PULSE 69; RESP 16
== END 2021-11-04 21:37 | disposition home or self-care (01) ==
PROVIDERS: Emergency Provider Family Medicine
DX: U07.1 COVID-19 (principal); R10.11 Right upper quadrant pain; R07.9 Chest pain, unspecified
CPT/HCPCS: 36415; 71260; 74177; 80053; 83605; 83880; 84484; 85025; 85379; 86140; 93005; 94761; 96361; 96374; 96375; 99284; J1200; J1720; J7030; Q9967